=== PATIENT | female | born 1970 | race Asian ===

== ENCOUNTER 2022-03-12 15:47 | Emergency (ER) | payer MEDICAID, SELFPAY ==
[2022-03-12 16:11] VITALS: BP 151/90; PULSE 72; RESP 16; TEMP 37.2; O2SAT 97; BMI 22.0
--- NOTE | 2022-03-12 16:30 | ED.GENADULT ---
HPI - General Adult General Time Seen by Provider: 16:31 Date Seen: 03/12/22 Chief complaint: Syncope/Fainted Stated complaint: FAINTED-LEGS,KNEE,HIP,HEAD INJURIES Time Seen by Provider: 03/12/22 16:16 Source: patient and RN notes reviewed Mode of arrival: ambulatory Limitations: no limitations History of Present Illness HPI narrative: This 51-year-old female is coming in with concerns of some right knee issues, possibly increasing tearing of known cartilage tears in her knee, some leg discomfort/hip discomfort, hitting her head after a syncopal episode today. She is doing some rehab on hernia she states she has arthritis in there is a posterior cartilage tear. She was at the gym doing rehab, went in the [facility] and after she came out of the [facility], was walking down the [place] to go in the gym. She pulled the door open, stating she just did not really feel well at that time. When she came to she was on the ground and her right leg was somewhat behind her with the knee flexed at a 90 degree angle. When ask her what her biggest concern is today she states she is worried that there might have been increased tears in the cartilage in her knee. Reviewed with her that I would not be able to MRI her knee and that is how you check for cartilage. If she is having increased pain would recommend x-ray of the knee. She notes some pulling of the muscles over the quads as well as hamstrings as she is pointing to them. As she is showing me that she is lifting her leg up off the bed and controlling the lower extremity, the us no concern for any quadriceps disruption. She denies prior syncopal events. She felt like her heart was racing at the time but that has been gone. No return of any palpitations, fast heart rate, no shortness of breath, no chest symptomatology. She never felt short of breath nor has she has since then. She feels like she had her head. She baseline has had some muscular pain and points along the anterolateral right neck but that is not changed per her report. This happened at 10:30 a.m. in the morning and she is presenting hours later. She was feeling fine this morning, feels fine now other than her orthopedic complaints. Sounds as if she may have hit the front of her head on the left side. Related Data Home Medications Medication Instructions Recorded Confirmed acetaminophen 325 mg tablet (Pain 325 mg PO Q6H PRN 03/12/22 03/12/22 Relief (acetaminophen)) celecoxib 200 mg capsule 200 mg PO Q12H 03/12/22 03/12/22 tizanidine 4 mg tablet 4 mg PO Q6H PRN 03/12/22 03/12/22 Allergies Allergy/AdvReac Type Severity Reaction Status Date / Time hydrochlorothiazide Allergy Unknown Verified 03/12/22 16:24 Review of Systems Status of ROS: Reports: 10 or more systems reviewed and unremarkable except as noted in History and below [facility] Social History Smoking Status: Never smoker Second hand tobacco smoke exposure: No Non-prescribed substance use: denies use Exam Const: Vital Signs, click to edit/add: Vital Signs - 24 hr 03/12/22 16:11 03/12/22 16:41 Temperature 99.0 F Pulse Rate [Right Pulse Oximeter] 72 Respiratory Rate 16 Blood Pressure [Le ft Upper Arm] 151/90 H Pulse Oximetry 97 99 Oxygen Delivery Me thod Room Air Documenting provider has reviewed patient's vital signs: yes Common normals: no apparent distress, oriented x3, no limitations, healthy appearing, alert and well nourished General appearance: cooperative, comfortable and well kempt HENMT: Common normals: normocephalic, head/scalp atraumatic (Find no evidence of any skin changes of trauma), hearing grossly normal bilaterally, external ears normal, external nose normal, nasal mucous membranes and turbinates normal, moist oral mucous membranes, oropharynx normal, dentition normal and gingiva normal Head and scalp: normocephalic and atraumatic (Find no evidence of any skin changes of trauma) Nose: external nose normal and nasal mucous membranes and turbinates normal External ear: external ears normal Eye: Common normals: PERRL, EOMs intact bilaterally, conjunctivae normal and no scleral icterus Conjunctiva: conjunctiva(e) normal Pupil: PERRL Neck & C-Spine: Common normals: full ROM, no lymphadenopathy, supple and no meningeal signs Resp: Common normals: normal respiratory effort, no retractions, no use of accessory muscles and clear to auscultation bilaterally Auscultation: clear to auscultation bilaterally Cardio: Common normals: regular rate, regular rhythm, S1 normal heart sound, S2 normal heart sound, no gallops, no clicks and no murmurs Rate: regular rate Rhythm: regular rhythm Heart sounds: S1 normal and S2 normal GI: Common normals: Normal to inspection, nondistended, normoactive bowel sounds present, soft to palpation, non-tender, no hepatosplenomegaly and no masses Palpation: soft and no hepatosplenomegaly Extremity: Other: No lower extremitiy edema. Knee joint thicker without edema, no specific skin changes. Small erythematous area on anterior left knee but no significant pain per patient. Mobilizes hips/knees without difficulty. Neuro: Common normals: oriented x3, CN's II-XII intact bilaterally, moves all extremities, no focal motor deficits and no sensory deficits noted Sensorium/orientation: alert Meningeal signs: no meningeal signs Psych: Appearance: well kempt Course Course Hospital Course: Will obtain head CT due to the syncope in the fall. Again this happened at about 10 30 this morning, hours ago. I have reviewed with her that I cannot MRI her knee here emergently, not indicated through the ED. I can x-ray her knee. As far as other testing, I have requested that we do cardiac monitoring, obtain an EKG and get some basic labs for this syncope. It certainly sounds vasovagal with her coming out of the Jacuzzi and then walking. She really is asymptomatic at this time for anything other than the injury she sustained in the fall. She is having no chest symptoms such as chest pain, shortness of breath, no hemodynamic instability that would be in lines with a significant pulmonary embolus to cause syncope. Reevaluation(s) Reevaluation #1: Reviewed with her the normal labs, normal EKG, normal head CT. There is a question of a fibular fracture. She is tender over the proximal fibula on re-evaluation. Thus, will talk to Orthopedics. She states she has a knee brace at home that was a custom brace for her arthritis and probably her meniscal injuries. Time: 18:21 Reevaluation #2: After talking to Orthopedics, talked to patient. It really is becoming unclear whether or not she does or does not have pain along this proximal fibula. Ankle certainly not bothering her. Had nursing staff actually ambulate her. They felt it was difficult to read but her pain seemed to be more medial along her knee. She seemed to ambulate without significant difficulty. At this time, I will place patient in a knee immobilizer, have her follow up in clinic. They can recheck for possible proximal fibula fracture at that time. If she can comfortably ambulate in the knee immobilizer, can use her walking sticks, if not, we will get crutches. Time: 18:55 Consultations Consultation #1: Spoke with Clifford from Orthopedics. Reviewed the situation. I clinically have no evidence of any ankle injury here. Thus he thought using a knee immobilizer and weight-bearing as tolerated would be sufficient. She can follow up with Dr. Collado or Orthopedics. Time: 18:28 Vital Signs Vital signs: Initial Vital Signs Temperature 99.0 F 03/12/22 16:11 Temperature Source Temporal Artery Scan 03/12/22 16:11 Pulse Rate 72 03/12/22 16:11 Respiratory Rate 16 03/12/22 16:11 Blood Pressure 151/90 H 03/12/22 16:11 Blood Pressure Mean 110 03/12/22 16:11 Blood Pressure Position Sitting 03/12/22 16:11 Pulse Oximetry 97 03/12/22 16:11 Oxygen Delivery Method 03/12/22 16:11 Vital Signs Temperature 99.0 F 03/12/22 16:11 Pulse Rate 72 03/12/22 16:11 Respiratory Rate 16 03/12/22 16:11 Blood Pressure 151/90 H 03/12/22 16:11 Pulse Oximetry 97 03/12/22 16:11 Oxygen Delivery Method 03/12/22 16:11 Temperature 99.0 F 03/12/22 16:11 Pulse Rate 72 03/12/22 16:11 Respiratory Rate 16 03/12/22 16:11 Blood Pressure 151/90 H 03/12/22 16:11 Pulse Oximetry 99 03/12/22 16:41 Oxygen Delivery Method 03/12/22 16:11 Medical Decision Making Lab Data Labs: Lab Results 03/12/22 03/12/22 03/12/22 Range/Units 17:28 17:28 17:28 WBC 7.64 (4.50-11.00) K/uL RBC 4.17 (4.00-5.20) m/uL Hgb 12.9 (12.0-16.0) gm/dL Hct 38.5 (33.0-51.0) % MCV 92 (80-100) fL MCH 31 (26-34) pg MCHC 34 (32-36) gm/dL RDW Coeff of Yue 12.0 (11.5-15.5) % Plt Count 299 (140-440) K/uL Neut % (Auto) 72.4 H (42.0-72.0) % Lymph % (Auto) 21.7 (20-44) % [place] % (Auto) 4.2 (0.0-11.0) % Eos % (Auto) 1.2 (0.0-7.0) % Baso % (Auto) 0.5 (0.0-3.0) % Neut # (Auto) 5.50 (1.7-7.0) K/uL Lymph # (Auto) 1.66 (0.90-2.90) K/uL [place] # (Auto) 0.30 (0.00-0.90) K/UL Eos # (Auto) 0.09 (0.00-0.50) K/uL Baso # (Auto) 0.04 (0.00-0.30) K/uL Abs Immat Gran (auto) 0.00 (0.00-0.30) K/uL Sodium 138 (135-149) mmol/L Potassium 4.8 (3.6-5.1) mmol/L Chloride 103 (96-114) mmol/L Carbon Dioxide 30 (20-32) mmol/L BUN 13 (7-30) mg/dL Creatinine 0.5 (0.5-1.5) mg/dL Estimated Creat Clear 107.64 Estimated GFR 112 ml/min Glucose 104 (60-115) mg/dL Calcium 9.6 (8.4-10.6) mg/dL POC Troponin I 0.01 (0.01-0.04) ng/ml Imaging Data CT scan - head: Attestation: I have reviewed the pertinent imaging results. Radiologist's impression: Patient: SASCHA GARZA Facility:?[facility] Patient ID:?[id number] Site Patient ID:?[id number]. Site :?[id number] Study:?CT Head W/O-03/12/2022 5:17:42 PM Ordering Physician:?Bobbiomel-Givens Kelly Final Report: INDICATION: Fall, syncope TECHNIQUE: CT head without contrast. COMPARISON: None FINDINGS: CSF spaces: Within normal limits for age. Brain parenchyma: The henry-white differentiation is normal. No sign of mass, hemorrhage, or midline shift. Skull base and calvarium: The visualized paranasal sinuses and mastoid air cells demonstrate no acute or significant findings. The visualized orbits are grossly unremarkable. No skull fractures. IMPRESSION: Unremarkable noncontrast head CT. Dictated by Darryn Summers MD @ 03/12/2022 5:25:21 PM Please note that all CT scans at this facility use dose modulation, iterative reconstruction, and/or weight-based dosing when appropriate to reduce radiation dose to as low as reasonably achievable. Dictated by: Darryn Summers MD @ 03/12/2022 17:25:27 (Electronic Signature) X-ray right knee: Attestation: I have reviewed the pertinent imaging results. Radiologist's impression: [facility] Facility:?[facility] Patient ID:?[id number] Site Patient ID:?[id number]. Site :?[id number] Study:?XRay Knee Right -03/12/2022 5:12:12 PM Ordering Physician:Susan Mendoza Final Report: Indication: Fall, Pain Comparison: None available. Technique: AP and lateral views right knee were obtained. Findings: There is questionable lucency through the superolateral aspect of the fibular head seen on the AP projection. There is no other displaced fracture identified. There is moderate lateral joint space narrowing with marginal osteophyte formation and tibial spine spurring. There is a small suprapatellar joint effusion. Impression: Questionable lucency through the superolateral aspect of the fibular head which may represent a nondisplaced fracture. No other displaced injuries are appreciated. Correlate with site of clinical tenderness. Moderate tricompartmental degenerative changes worse in the lateral compartment. Dictated by Pernell Diaz MD @ 03/12/2022 5:26:16 PM (Electronic Signature) ECG Data Attestation: I personally reviewed and interpreted this ECG as follows: (Sinus rhythm, 62 beats per minute, QT corrected 456 milliseconds, no acute ischemic change.) Prior ECG tracings: not available for review Critical Care Time Critical Care Time Critical Care Time: No Discharge Plan Discharge Clinical Impression: Vasovagal syncope, Knee pain, right Patient Disposition: Home, Self-Care Condition: Stable Instructions: Syncope (ED), Knee Pain (ED) Additional Instructions: Use knee immobilizer as needed for stabilization of knee with walking. If you are having absolutely no pain with ambulation, can try to take the knee immobilizer off. Dr. Collado should re-evaluate your knee on Wednesday and re-x-ray, see if he does see any evidence of a fibular fracture. It certainly sounds as if you had an episode of vasovagal syncope. However, should you have any further episodes of syncope, further workup would be indicated. Recommend follow-up with your primary care provider to recheck in clinic within the next 1-2 weeks. Activity Level: Activity as Tolerated Prescriptions: No Action tizanidine 4 mg tablet 4 mg PO Q6H PRN Label Comments: TAKE ONE TABLET BY MOUTH EVERY 6 HOURS NEEDED FOR MUSCLE SPASM. celecoxib 200 mg capsule 200 mg PO Q12H Label Comments: TAKE ONE CAPSULE BY MOUTH TWICE A DAY WITH MEALS acetaminophen [Pain Relief (acetaminophen)] 325 mg tablet 325 mg PO Q6H PRN Follow Up/Referrals: Thelma Laughlin DO [Primary Care Provider] - Stand Alone Forms: [employer] Info Instructions
[2022-03-12 16:41] VITALS: O2SAT 99
--- NOTE | 2022-03-12 16:41 | CRLHL7_ITS ---
For Patients: As a result of the Century Cures Act, medical imaging exams and procedure reports are released immediately into your electronic medical record. You may view this report before your referring provider. If you have questions, please contact your health care provider. Indication: Fall, Pain Comparison: None available. Technique: AP and lateral views right knee were obtained. Findings: There is questionable lucency through the superolateral aspect of the fibular head seen on the AP projection. There is no other displaced fracture identified. There is moderate lateral joint space narrowing with marginal osteophyte formation and tibial spine spurring. There is a small suprapatellar joint effusion. Impression: Questionable lucency through the superolateral aspect of the fibular head which may represent a nondisplaced fracture. No other displaced injuries are appreciated. Correlate with site of clinical tenderness. Moderate tricompartmental degenerative changes worse in the lateral compartment. Dictated by Pernell Diaz MD @ 03/12/2022 5:26:16 PM (Electronically Signed)
--- NOTE | 2022-03-12 16:41 | CRLHL7_ITS ---
For Patients: As a result of the Cures Act, medical imaging exams and procedure reports are released immediately into your electronic medical record. You may view this report before your referring provider. If you have questions, please contact your health care provider. INDICATION: Fall, syncope TECHNIQUE: CT head without contrast. COMPARISON: None FINDINGS: CSF spaces: Within normal limits for age. Brain parenchyma: The henry-white differentiation is normal. No sign of mass, hemorrhage, or midline shift. Skull base and calvarium: The visualized paranasal sinuses and mastoid air cells demonstrate no acute or significant findings. The visualized orbits are grossly unremarkable. No skull fractures. IMPRESSION: Unremarkable noncontrast head CT. Dictated by Darryn Summers MD @ 03/12/2022 5:25:21 PM Please note that all CT scans at this facility use dose modulation, iterative reconstruction, and/or weight-based dosing when appropriate to reduce radiation dose to as low as reasonably achievable. Dictated by: Darryn Summers MD @ 03/12/2022 17:25:27 (Electronically Signed)
[2022-03-12 17:33] LABS: Basophils Absolute Auto 0.04 K/uL (0.00-0.30); Basophils Percent Auto 0.5 % (0.0-3.0); Eosinophils Absolute Auto 0.09 K/uL (0.00-0.50); Eosinophils Percent Auto 1.2 % (0.0-7.0); Hematocrit 38.5 % (33.0-51.0); Hemoglobin* 12.9 gm/dL (12.0-16.0); Lymphocytes Absolute Auto 1.66 K/uL (0.90-2.90); Lymphocytes Percent Auto 21.7 % (20-44); Mean Corpuscular HGB Conc 34 gm/dL (32-36); Mean Corpuscular Hemoglobin 31 pg (26-34); Mean Corpuscular Volume 92 fL (80-100); Monocytes Percent Auto 4.2 % (0.0-11.0); Neutrophils Percent Auto 72.4 % (42.0-72.0); Platelet Count* 299 K/uL (140-440); Red Blood Count 4.17 m/uL (4.00-5.20); White Blood Count* 7.64 K/uL (4.50-11.00)
[2022-03-12 17:40] LABS: Slide Review Reflex No
[2022-03-12 17:48] LABS: Chloride* 103 mmol/L (96-114); Potassium* 4.8 mmol/L (3.6-5.1); Sodium* 138 mmol/L (135-149)
[2022-03-12 17:50] LABS: Troponin, Point-of-Care* 0.01 ng/ml (0.01-0.04)
[2022-03-12 17:51] LABS: Blood Urea Nitrogen* 13 mg/dL (7-30); Carbon Dioxide* 30 mmol/L (20-32); Creatinine* 0.5 mg/dL (0.5-1.5); Est. Creatinine Clearance* 107.64; Estimated Glomerular Filt Rate 112 ml/min; Glucose* 104 mg/dL (60-115)
[2022-03-12 17:52] LABS: Calcium* 9.6 mg/dL (8.4-10.6)
[2022-03-12 18:30] VITALS: PULSE 99; RESP 13; O2SAT 58
--- NOTE | 2022-03-12 19:14 | ED.NURSE ---
Knee immobilizer placed on right leg.
== END 2022-03-12 20:30 | disposition home or self-care (01) ==
PROVIDERS: Emergency Provider Family Medicine; PCP Family Medicine
DX: R55 Syncope and collapse (principal); M25.561 Pain in right knee
CPT/HCPCS: 36415; 70450; 73560; 80048; 85025; 93005; 94761; 99284; 99285